=== PATIENT | female | born 1975 | race Two or more races ===

== ENCOUNTER 2022-01-25 14:40 | Emergency (ER) | payer SELFPAY ==
[~2022-01-25] VITALS: Ht 152.4 cm; Wt 98.9 kg
[2022-01-25 16:17] LABS: BILIRUBIN NEGATIVE (NEGATIVE); BLOOD NEGATIVE Ery/uL (NEGATIVE); CLARITY CLEAR (CLEAR); COLOR YELLOW (YELLOW); GLUCOSE (U) 3+ mg/dL (NORMAL); LEUKOCYTES NEGATIVE Leu/uL (NEGATIVE); NITRITE NEGATIVE (NEGATIVE); PROTEIN NEGATIVE (NEGATIVE); SPECIFIC GRAVITY <=1.005 (1.001-1.030); UROBILINOGEN 0.2 mg/dL (0.2-1.0)
[2022-01-25 16:28] LABS: BASOPHIL 0.5 % (0-2); EOSINOPHIL 3.9 % (0-5); HCT 40.9 % (37.0-47.0); HGB 12.7 g/dl (12.5-16.0); MCHC 31.1 g/dL (32.0-36.0); MCV 80.7 fL (78.0-100.0); MONOCYTE 9.3 % (0-12); MPV 9.4 fL (6.0-9.5); NEUTROPHIL 58.6 % (41-80); NRBC 0; PLT 353 K/uL (150-400); RBC 5.07 M/uL (4.20-5.40); RDW 17.3 % (11.5-14.0); WBC 5.9 K/uL (4.0-10.5)
[2022-01-25 16:41] LABS: BUN/CREAT RATIO (CALC) 14.9 RATIO; CREATININE 0.67 mg/dL (0.51-0.95)
[2022-01-25] MEDS ORDERED: METFORMIN HCL500 M3 PO (21:28)
[2022-01-25] MEDS ORDERED: DIFLUCAN150 MG PO (21:28)
[2022-01-27 22:08] LABS: CHLAMYDIA TRACHOMATIS, NAA Negative (Negative); NEISSERIA GONORRHOEAE, NAA Negative (Negative)
== END 2022-01-25 22:22 | disposition home or self-care (01) ==
LOC: FER 14:40
PROVIDERS: Nurse Practitioner Family
DX: B37.3 Candidiasis of vulva and vagina (principal); R73.9 Hyperglycemia, unspecified
CPT/HCPCS: 36415; 80048; 81003; 82009; 83036; 85025; 87491; 87591; 99283; J7030